=== PATIENT | female | born 1945 | race Caucasian/White ===

== ENCOUNTER 2017-06-15 06:29 | Inpatient (IN) ==
[2017-06-12 16:14] LABS: Appearance,Urine CLEAR; Bacteria,Urine 0 /hpf (0); Bilirubin,Urine NEG (NEG); Color,Urine YELLOW; Glucose,Urine (UA) NEGATIVE (NEG); Leukocyte Esterase,Urine 75 /uL (NEG); Mucus,Urine FEW /hpf (0); Nitrate,Urine NEG (NEG); Protein,Urine NEG (NEG); Specific Gravity,Urine 1.012 (1.000-1.035); Urine Blood NEG mg/dL (<0.03); Urine RBC 0 /hpf (0-1); Urine Squamous Epithelial Cell 1 /hpf (0-4); Urine Transitional Epi Cells 1 /hpf (0-2); Urine WBC 3 /hpf (0-4); Urobilinogen,Urine NEG (NEG)
[2017-06-12 16:35] LABS: Basophils # (Auto) 0 K/mcL (0.0-0.3); Basophils % (Auto) 0.5 % (0.0-2.0); Eosinophils # (Auto) 0.2 K/mcL (0.0-0.7); Eosinophils % (Auto) 2.3 % (0.0-7.0); Granulocytes % (Auto) 64.6 % (38.0-78.0); Lymphocytes # (Auto) 2.5 K/mcL (1.5-4.8); Lymphocytes % (Auto) 27.2 % (15.5-49.0); Mean Cell Volume 86.9 fL (80.0-100.0); Mean Corpuscular HGB Conc 34.2 g/dL (31.0-36.0); Mean Corpuscular Hemoglobin 29.7 pg (26.0-34.0); Monocytes # (Auto) 0.5 K/mcL (0.1-0.9); Monocytes % (Auto) 5.4 % (1.0-12.0); Platelet Count 369 K/mcL (140-440); RBC 4.36 M/mcL (4.00-5.20); Red Cell Distribution Width 14.2 % (11.5-14.5)
[2017-06-12 16:42] LABS: Blood Urea Nitrogen 11 mg/dl (8-23)
[~2017-06-15 06:29] MED LIST: ACETAMINOPHEN 500 MG TABLET PO SCH; CELECOXIB 200 MG CAPSULE PO SCH; PREGABALIN 75 MG CAPSULE PO SCH; ceFAZolin 1 GM VIAL IV SCH; oxyCODONE 10 MG TAB.ER.12H PO SCH
[2017-06-15] MEDS ORDERED: ONDANSETRON 4 MG/2 ML VIAL ONE (09:08)
[2017-06-15] MEDS ORDERED: MIDAZOLAM 5 MG/5 ML VIAL ONE (09:08)
[2017-06-15] MEDS ORDERED: LIDOCAINE HCL/PF 100 MG/5 ML SYRINGE IV ONE (09:08)
[2017-06-15] MEDS ORDERED: DEXAMETHASONE 10 MG/ML VIAL ONE (09:08)
[2017-06-15] MEDS ORDERED: GLYCOPYRROLATE 0.2 MG/ML VIAL IV ONE (09:08)
[2017-06-15] MEDS ORDERED: fentaNYL 100 MCG/2 ML VIAL IV ONE (09:08)
[2017-06-15] MEDS ORDERED: PROPOFOL 200 MG/20 ML VIAL IV ONE (09:08)
[2017-06-15] MEDS ORDERED: SUCCINYLCHOLINE 20 MG/ML ML IV ONE (09:08)
[2017-06-15] MEDS ORDERED: ePHEDrine 50 MG/ML AMPUL IV ONE (09:08)
[2017-06-15] MEDS ORDERED: GENTAMICIN SULFATE 800 MG/20 ML VIAL IR ONE (10:21)
[2017-06-15] MEDS ORDERED: TRANEXAMIC ACID 1,000 MG/10 ML VIAL IV ONE (10:22)
[2017-06-15] MEDS ORDERED: HYDROmorphone 2 MG/ML SYRINGE IV PRN ×2 (10:22→10:27)
[2017-06-15] MEDS ORDERED: KETOROLAC 15 MG/ML VIAL IV PRN (10:22)
[2017-06-15] MEDS ORDERED: BISACODYL 10 MG SUPP.RECT PR PRN (10:22)
[2017-06-15] MEDS ORDERED: FLEETS ADULT ENEMA PR PRN (10:22)
[2017-06-15] MEDS ORDERED: TEMAZEPAM 15 MG CAPSULE PO PRN (10:22)
[2017-06-15] MEDS ORDERED: POLYETHYLENE GLYCOL 3350 17 GM PACKET PO PRN (10:22)
[2017-06-15] MEDS ORDERED: BENZOCAINE/MENTHOL 1 LOZENGE PO PRN ×2 (10:22→10:27)
[2017-06-15] MEDS ORDERED: ACETAMINOPHEN 325 MG TABLET PO PRN (10:22)
[2017-06-15] MEDS ORDERED: MAGNESIUM HYDROXIDE 30 ML ORAL.SUSP PO PRN (10:22)
[2017-06-15] MEDS ORDERED: METOCLOPRAMIDE 10 MG/2 ML VIAL IV PRN (10:27)
[2017-06-15] MEDS ORDERED: IPRATROPIUM/ALBUTEROL 3 ML AMPUL.NEB NEB PRN (10:27)
[2017-06-15] MEDS ORDERED: ONDANSETRON 4 MG/2 ML VIAL IV PRN (10:27)
[2017-06-15] MEDS ORDERED: MEPERIDINE 25 MG/ML SYRINGE IV PRN (10:27)
[2017-06-15] MEDS ORDERED: FLUMAZENIL 0.1 MG/ML ML IV PRN (10:27)
[2017-06-15] MEDS ORDERED: METHOCARBAMOL 1,000 MG/10 ML VIAL IV PRN (10:27)
[2017-06-15] MEDS ORDERED: NALOXONE HCL 0.4 MG/ML VIAL IV PRN (10:27)
[2017-06-15] MEDS ORDERED: LACTATED RINGERS 250 ML IV PRN (10:27)
[2017-06-15] MEDS ORDERED: fentaNYL 100 MCG/2 ML VIAL IV PRN (10:27)
[2017-06-15] MEDS ORDERED: diphenhydrAMINE 50 MG/ML VIAL IV PRN (10:27)
--- NOTE | 2017-06-15 10:27 | Brief Operative Note ---
Date of procedure: 06/15/17 Pre-op diagnosis: left rca Post-op diagnosis: same Procedure: Left reverse tsa Grafts/Implants: Yes Anesthesia: POLLY Surgeon: Juno Faulkner Computer Operations Specialist: Wilton Bangura Estimated blood loss (cc): 20 Specimens Removed/Pathology: none sent Condition: stable Disposition: PACU
[2017-06-15] MEDS ORDERED: LACTATED RINGERS 1,000 ML IV SCH (10:30)
--- NOTE | 2017-06-15 11:20 | XRay Report ---
HISTORY: Reason for Exam:Post-OP Total Shoulder FINDINGS: There is a well-positioned reverse shoulder prosthesis. There is no fracture or abnormal soft tissue calcification. Minor arthritis is present at the acromioclavicular joint. There is a moderate size band of scar or discoid atelectasis medially in the right lung base. IMPRESSION: Well-positioned right shoulder prosthesis Interpreted and Authenticated by: Ramone Duff 06/15/17
[2017-06-15] MEDS ORDERED: ACETAMINOPHEN 1,000 MG/100 ML BOTTLE IV ONE (11:30)
--- NOTE | 2017-06-15 13:24 | Operative Note ---
DATE OF OPERATION: 06/15/2017 PREOPERATIVE DIAGNOSIS: Right rotator cuff arthropathy of the shoulder. POSTOPERATIVE DIAGNOSIS: Right rotator cuff arthropathy of the shoulder. PROCEDURE: Right reverse total shoulder. SURGEON: Juno Faulkner M.D. GROUT PUMP OPERATOR: Wilton Bangura PA-C. ANESTHESIA: General LMA anesthesia. COMPLICATIONS: None. ESTIMATED BLOOD LOSS: About 20 mL. IMPLANTS: A [place] reverse cementless total shoulder with a 36 mm glenosphere with 6 mm of offset and 2 mm of eccentricity and a standard thickness poly. Baseplate had a central screw measuring 32 and then three additional screws, length per nurse's note. DESCRIPTION OF PROCEDURE: The patient was brought to the operating room and put to sleep with general LMA anesthesia. Once asleep, the patient had the right shoulder sterilely prepped and draped in the usual sterile fashion. Once confirmed as the operative site after the time out, we placed Ioban over the skin and made a deltopectoral approach in a beach chair position. We made sure the patient was laying back at about 30 degrees of inclination, and then placed a deltoid retractor after identifying the cephalic vein and elevating the soft tissues and adhesions in the subdeltoid bursal region. Once done, I then identified the rotator cuff. There was a large defect superiorly. I released the subscap and dislocated the humeral head and made a release inferiorly down to the pectoralis major controlling any bleeder with the Bovie. Once done, I then released the capsule around the glenoid and made our neck cut at anatomical neck region with 20 degrees of retroversion. Once this was done, I then placed a metal plate on the humeral side and then subluxed this posteriorly. A 360-degree capsulotomy removing the biceps tendon, and the biceps tendon was repaired to the pectoralis major with a #2 Ethibond. Once done, I then placed a pin hole centrally in the glenoid, and then at 10 degrees of inclination we reamed to a 36 reamer. Once done, I placed the metaglene with a central screw measuring 32, and then a superior screw 32, inferior 28, and anterior screw 28. All had well fixed in place the metaglene and a glenosphere over the top. This was set at 6 mm offset with a 2 mm eccentricity. Once done, I irrigated thoroughly and then prepared the humerus. This was reamed up to the size 10 for a 10 stem. We trialed a size 10 with a standard thickness poly. It was a little tight. We had to remove about another millimeter of bone from the humeral side. This was reduced without difficulty. I then placed a cementless stem size 10 with a standard thickness poly. This was tapped into place and then reduced fairly easily. We irrigated thoroughly and 1 mm Shuck test. We replaced and repaired the subscap to the remaining part of the attachment point of the bone and to the implant. Once this was done, we irrigated and took the shoulder through range of motion, very stable. We thoroughly irrigated the shoulder and closed the deltoid interval with 2-0 Vicryl. We then irrigated thoroughly and then closed the skin with 2-0 Vicryl and adhesive closure. The patient tolerated this well without complication. Please note the patient was fitted and given a Donjoy at the end of the case. [facility]:azeem Job ID: [id number] Doc ID: [id number] Juno Faulkner MD
[2017-06-15] MEDS: 0.45 % SODIUM CHLORIDE 1,000 ML IV SCH (16:23)
[2017-06-15] MEDS: ceFAZolin 1 GM VIAL IV SCH (16:24)
[2017-06-15] MEDS: 0.9 % SODIUM CHLORIDE 10 ML SYRINGE IV SCH (16:24)
[2017-06-15] MEDS: ONDANSETRON 4 MG/2 ML VIAL IV PRN ×2 (17:23→21:48)
[2017-06-15] MEDS: DOCUSATE SODIUM 100 MG CAPSULE PO SCH (20:56)
[2017-06-15] MEDS: METOPROLOL SUCCINATE 25 MG TAB.XL.24H PO SCH (20:56)
[2017-06-15] MEDS: SIMVASTATIN 10 MG TABLET PO SCH ×2 (20:57→21:49)
[2017-06-15] MEDS ORDERED: POTASSIUM CHLORIDE 20 MEQ TABLET PO SCH (21:00)
[2017-06-15] MEDS ORDERED: SENNOSIDES 1 TABLET PO SCH (21:00)
[2017-06-15] MEDS: HYDROcodone/APAP 10/325MG TABLET PO PRN (21:47)
[2017-06-16] MEDS: 0.9 % SODIUM CHLORIDE 10 ML SYRINGE IV SCH ×2 (00:11→04:26)
[2017-06-16] MEDS: 0.45 % SODIUM CHLORIDE 1,000 ML IV SCH (00:48)
[2017-06-16] MEDS: ceFAZolin 1 GM VIAL IV SCH (00:48)
[2017-06-16] MEDS: HYDROcodone/APAP 10/325MG TABLET PO PRN ×2 (05:55→09:40)
[2017-06-16] MEDS: ONDANSETRON 4 MG/2 ML VIAL IV PRN (06:42)
--- NOTE | 2017-06-16 07:34 | Orthopedic Progress Note ---
Subjective Patient information: Note initiated : 06/16/17 at 7:33 am Service Date, if different from initiated Date: [] Patient: Sybil Carlisle 72 y/o F admitted on 06/15/17 for Right Reverse Total Shoulder Arthroplasty with . Chief Complaint: [] Pt is stable this morning on post operative day 1 without any significant concerns or complaints. Patients vital signs have remained stable. Patients dressing is dry and exhibits a grossly intact neurovascular and neuromotor exam. Patients 10 point ROS is otherwise negative. Objective Vital signs: Vital Signs Temp Pulse Resp BP Pulse Ox 06/16/17 06:41 98.8 F 92 H 16 137/82 99 06/16/17 03:08 97.6 F 96 H 18 144/83 97 06/16/17 00:46 97.1 F 90 17 146/84 94 06/15/17 20:00 96.7 F L 83 18 137/85 97 06/15/17 14:45 78 129/78 98 06/15/17 13:45 126/80 96 06/15/17 13:15 128/78 96 06/15/17 12:48 131/72 97 06/15/17 12:30 124/72 97 06/15/17 12:24 97 06/15/17 12:15 126/76 97 06/15/17 12:00 95.8 F L 12 130/77 97 06/15/17 11:56 75 16 132/72 94 06/15/17 11:45 76 17 139/70 94 06/15/17 11:30 85 16 142/71 98 06/15/17 11:15 86 20 138/71 98 06/15/17 11:00 92 H 20 128/72 98 06/15/17 10:43 97.3 F 85 15 132/69 98 Intake and Output 06/15/17 06/16/17 06/16/17 21:59 05:59 13:59 Intake Total 1842 / 1842 Output Total 1775 / 1775 1350 / 1350 Balance -1775 / -1775 492 / 492 Intake: IV 842 / 842 Sodium Chloride 0.45% 1,000 ml 842 / 842 @ 100 mls/hr IV .Q10H GIGI Rx#: [id number] Oral 1000 / 1000 Output: Void Amount 1125 / 1125 1350 / 1350 Emesis 650 / 650 Other: # Voids 1 # Emeses 1 Weight 166 lb Intake & Output: Intake & Output 06/15/17 06/16/17 06/16/17 21:59 05:59 13:59 Intake Total 1842 / 1842 Output Total 1775 / 1775 1350 / 1350 Balance -1775 / -1775 492 / 492 Weight 166 lb Intake: IV 842 / 842 Sodium Chloride 0.45% 1,000 ml 842 / 842 @ 100 mls/hr IV .Q10H GIGI Rx#: [id number] Oral 1000 / 1000 Output: Void Amount 1125 / 1125 1350 / 1350 Emesis 650 / 650 Other: # Voids 1 # Emeses 1 Incision: Yes healing Incision clean and dry: Yes Dressing: Yes clean Weight bearing status: partial Neurological exam IM: Yes motor sensory intact, Yes neurovascular intact Extremities exam IM: Yes neurovascular intact - Labs CBC & BMP: 06/12/17 14:47 06/12/17 14:46 Labs: Orthopedic Labs 06/12/17 14:47 PT 13.0 INR 1.0 APTT 28 06/12/17 14:47 Hgb 13.0 Hct 37.9 Assessment and Plan (1) Hx of total shoulder replacement Patient has been educated regarding wound care and dressings, follow up recommendations, and medication use. We will f/u with the patient within 2-3 weeks for wound check. Status: Acute
--- NOTE | 2017-06-16 07:37 | Discharge Summary ---
Ortho Discharge - TSA - Patient Instructions Diet: Regular Diet Activity: activity as tolerated, weight bearing as tolerated Total Shoulder Protocol: Leave immobilizer in place except for bathing and ROM. Abduction pillow. Continue to wear sling until seen by physician. Codman Pendulum : These exercises use momentum produced by your body to move your shoulder joint. Bend your knees and shift your weight to your front leg, then back, allowing your arm to swing in the same directions. Using the same technique, alternately shift your weight between your right and left legs, allowing your arm to swing from side to side. These exercises are also performed in counterclockwise and clockwise circular motions. Typically these exercises are performed several times per day, for a set number repetitions or minutes, such as 20 times in a row or 5 minutes at a time. Dressing Care: May shower in 2 days Additional Dressing Instructions: Leave Dermabond patch intact until followup Patient Education: Shoulder Arthroplasty (DC) Additional Instructions: Discharge Instructions: Do the exercises at home that physical therapy gave you. Take your prescription, photo ID, insurance cards, and current medication list with you to your first physical therapy appointment. Take your prescription to picker tender any medication or equipment (such as walker, crutches, toilet riser or C.P.M.) Wear comfortable clothing for your physical therapy. If you have Dermabond (a dressing with a mesh-like appearance), leave open to air. You may start showering on post op day #2. The Dermabond dressing can get wet, do not scrub dressing. Pat dry. To avoid constipation while taking any narcotic pain medication, take an over the counter stool softener/laxative. Call your physician for fevers above 100.5 or pain not controlled by medication. Your prescriptions are with your discharge information. Some medications were electronically transmitted to your pharmacy of choice. Leave immobilizer in place except for bathing and ROM. Abduction pillow. Continue to wear sling until seen by physician. [place] Pendulum : These exercises use momentum produced by your body to move your shoulder joint. Bend your knees and shift your weight to your front leg, then back, allowing your arm to swing in the same directions. Using the same technique, alternately shift your weight between your right and left legs, allowing your arm to swing from side to side. These exercises are also performed in counterclockwise and clockwise circular motions. Typically these exercises are performed several times per day, for a set number repetitions or minutes, such as 20 times in a row or 5 minutes at a time. - Problem Maintenance (1) Hx of total shoulder replacement Status: Acute - Follow Up Plan Follow Up Appointments: Wilton Bangura PA-C [Physician Clinical Safety Specialist] - 06/30/17 11:20 am Disposition: Home, Self-Care Prognosis: Good Rehab Potential: Good I certify that the patient requires SNF services: No Overall status at discharge: patient is progressing back to baseline - Orders For Discharge Prescriptions: Docusate Sodium [Colace] 100 mg PO BID #60 cap HYDROcodone/APAP 10/325MG [[place] 10/325Mg] 1 - 2 tab PO Q4HP PRN #75 tab PRN Reason: Pain Additional Discharge Orders: Physical Therapy at Discharge - TSA Location: Determined By Patient Brace/Splint Location: Determined By Patient
[2017-06-16] MEDS ORDERED: POTASSIUM CHLORIDE 20 MEQ TABLET PO SCH (08:00)
[2017-06-16] MEDS ORDERED: MAGNESIUM OXIDE 400 MG TABLET PO SCH (09:00)
[2017-06-16] MEDS ORDERED: MULTIVIT,THER IRON,CA,FA & MIN 1 TABLET PO SCH (09:00)
[2017-06-16] MEDS ORDERED: amLODIPine 10 MG TABLET PO SCH (09:00)
[2017-06-16] MEDS: METOPROLOL SUCCINATE 25 MG TAB.XL.24H PO SCH (09:39)
[2017-06-16] MEDS: DOCUSATE SODIUM 100 MG CAPSULE PO SCH (09:45)
== END 2017-06-16 10:40 | disposition home or self-care (01) | DRG 483 ==
LOC: MEDSUR 06:29
PROVIDERS: ADMIT Orthopaedic Surgery; ATTEND Orthopaedic Surgery